=== PATIENT | female | born 1960 | race Caucasian/White ===

== ENCOUNTER 2024-04-07 19:40 | Emergency (ER) | payer MEDICARE ==
[~2024-04-07] VITALS: Ht 175.3 cm; Wt 51.7 kg
[~2024-04-07 19:40] MED LIST changes: -ACETAMINOPHEN 1000 MG/100 ML 100 ML IV ONE; -ACETAMINOPHEN 1000 MG/100 ML IV PRN; -ASPIRIN 325 MG TAB PO SCH; -CELECOXIB 100 MG CAP PO SCH; -DEXAMETHASONE SOD PHOS INJ 4 MG/ML SDV ONE; -DIPHENHYDRAMINE HCL INJ 50 MG/ML VIAL IV PRN; -DOCUSATE SODIUM 100 MG CAP PO PRN; -EPHEDRINE SULFATE INJ 50 MG/ML VIAL ONE; -FAMOTIDINE 20 MG/2 ML VIAL IV ONE; -FENTANYL CITRATE/PF 100MCG/2 ML INJ ONE; -HYDROCODONE/APAP 5MG-325MG TAB PO PRN; -HYDROCODONE/APAP 7.5MG-325MG 1 EA TAB PO PRN; -LACTATED RINGER'S 1,000 ML ONE; -LIDOCAINE HCL 2% LOCAL INJ 5 ML SDV VIAL INJ ONE; -ONDANSETRON HCL INJ 2MG/ML 2ML 2 MG/ML VIAL IV PRN; -ONDANSETRON HCL INJ 2MG/ML 2ML 2 MG/ML VIAL ONE; -PROPOFOL IV EMULSION 10 MG/ML 20 ML VIAL ONE; -ROPIVACAINE/EPI/CLONIDINE/KET 50 ML SYRINGE INJ ONE; -SEVOFLURANE INHAL SOLN 250 ML PEN BTL ONE; -SODIUM CHLORIDE 0.9% 1000ML 1,000 ML IV SCH
[2024-04-07 20:06] VITALS: PULSE 78; RESP 18; TEMP 98.4
[2024-04-07 20:31] LABS: BASOPHILS % 0.1 % (0.0-1.0); EOSINOPHILS % 0.1 % (0.0-6.0); HEMOGLOBIN 13.3 g/dL (12.0-16.0); LYMPHOCYTES # (AUTO) 0.5 (1.0-3.2); LYMPHOCYTES % 3.3 % (18.0-39.1); MEAN CORPUSCULAR HEMOGLOBIN 32.8 pg (28-32); MEAN CORPUSCULAR HGB CONC 32.4 g/dL (31-35); MEAN CORPUSCULAR VOLUME 101.2 fL (81-99); MONOCYTES # (AUTO) 0.2 (0.2-0.8); MONOCYTES % 1.6 % (4.4-11.3); NEUTROPHILS % 94.5 % (38.7-80.0); PLATELET COUNT 357 x10e3/uL (140-360); RED BLOOD COUNT 4.05 x10e6/uL (3.6-5.1); RED CELL DISTRIBUTION WIDTH 11.5 % (11.7-14.4); WHITE BLOOD COUNT 13.78 x10e3/uL (4.8-10.8)
[2024-04-07 20:52] LABS: ANION GAP 17.9 mmol/L (8-16); CALCIUM 9.5 mg/dL (8.4-10.2); CREATININE, SERUM 0.81 mg/dL (0.57-1.11); INR 1.07; POTASSIUM 3.9 mmol/L (3.5-5.1); PROTHROMBIN TIME 14.5 seconds (11.9-14.5)
[2024-04-07 21:36] VITALS: BP 134/87; PULSE 77; RESP 18; TEMP 98.1; O2SAT 100
== END 2024-04-07 21:30 | disposition home or self-care (01) ==
LOC: ER 19:48
DX: Z48.01 Encounter for change or removal of surgical wound dressing (principal); Z96.651 Presence of right artificial knee joint; F17.210 Nicotine dependence, cigarettes, uncomplicated
CPT/HCPCS: 36415; 80048; 85025; 85610; 85730; 99284

== ENCOUNTER → 2024-04-07 | Day surgery (SDC) | payer MEDICARE ==
[~2024-04-07] MED LIST: ACETAMINOPHEN 1000 MG/100 ML 100 ML IV ONE; ACETAMINOPHEN 1000 MG/100 ML IV PRN; ACETAMINOPHEN-1 EAC3 PO; ASPIRIN 325 MG TAB PO SCH; CELECOXIB 100 MG CAP PO SCH; DEXAMETHASONE SOD PHOS INJ 4 MG/ML SDV ONE; DIPHENHYDRAMINE HCL INJ 50 MG/ML VIAL IV PRN; DOCUSATE SODIUM 100 MG CAP PO PRN; EPHEDRINE SULFATE INJ 50 MG/ML VIAL ONE; FAMOTIDINE 20 MG/2 ML VIAL IV ONE; FENTANYL CITRATE/PF 100MCG/2 ML INJ ONE; HYDROCODONE/APAP 5MG-325MG TAB PO PRN; HYDROCODONE/APAP 7.5MG-325MG 1 EA TAB PO PRN; IBUPROFEN600 MG PO; LACTATED RINGER'S 1,000 ML ONE; LIDOCAINE HCL 2% LOCAL INJ 5 ML SDV VIAL INJ ONE; ONDANSETRON HCL INJ 2MG/ML 2ML 2 MG/ML VIAL IV PRN; ONDANSETRON HCL INJ 2MG/ML 2ML 2 MG/ML VIAL ONE; PROPOFOL IV EMULSION 10 MG/ML 20 ML VIAL ONE; ROPIVACAINE/EPI/CLONIDINE/KET 50 ML SYRINGE INJ ONE; SEVOFLURANE INHAL SOLN 250 ML PEN BTL ONE; SODIUM CHLORIDE 0.9% 1000ML 1,000 ML IV SCH
[2024-04-07] MEDS: CEFAZOLIN SODIUM 2 GM ONE (08:24)
[2024-04-07] MEDS: LACTATED RINGER'S 1,000 ML ONE (08:24)
[2024-04-07] MEDS: DEXAMETHASONE SOD PHOS 10 MG/1 ML VIAL ONE (08:25)
[2024-04-07] MEDS: GABAPENTIN 300 MG CAP ONE (08:25)
[2024-04-07] MEDS: CELECOXIB 200 MG CAP ONE (08:25)
[2024-04-07 13:35] VITALS: BP 163/67; PULSE 88; RESP 17; O2SAT 99
== END | disposition home health service (06) ==
LOC: OR 07:30
PROVIDERS: ATTEND Specialist
DX: M17.11 Unilateral primary osteoarthritis, right knee (principal); S82.141A Displaced bicondylar fracture of right tibia, initial encounter for closed fracture; F17.210 Nicotine dependence, cigarettes, uncomplicated; W19.XXXA Unspecified fall, initial encounter; Z01.810 Encounter for preprocedural cardiovascular examination; Z01.812 Encounter for preprocedural laboratory examination; Z79.1 Long term (current) use of non-steroidal anti-inflammatories (NSAID)
CPT/HCPCS: 27447; 71046; 73560; 86850; 86900; 93005; 97110; 97116; 97161; 97530; C1713 ×3; C1776 ×2; J0131; J1100 ×2; J2003; J2405; J2704; J3010; J7121